=== PATIENT | male | born 1945 | race Caucasian/White ===

== ENCOUNTER 2023-09-14 10:30 | Emergency (ER) | payer MEDICARE, SELFPAY ==
--- NOTE | ~2023-09-14 | CT_ITS ---
EXAMINATION: CTA OF THE HEAD AND NECK CLINICAL INFORMATION: Right eye vision. COMPARISON: None available. TECHNIQUE: Test bolus sequences followed by intravenous administration 70 mL of Omnipaque 350. Helical imaging was performed in the axial plane from the mediastinum to the skull vertex. Delayed postcontrast imaging of the head was also performed. The data was processed at the radiologic technologist chief's workstation for generation of MIP sequences. Three-dimensional volume rendered reformatted images were also generated at an offline 3-D workstation. Stenoses are assessed in accordance with NASCET criteria unless otherwise indicated. This CT examination was performed using dose optimization techniques as appropriate, variously including the following: *Automated exposure control *Adjustment of mA and/or kV according to patient size (this includes techniques or standardized protocols for targeted exams where dose is matched to indication/reason for exam; i.e. extremities or head) *Use of iterative reconstruction technique DLP: 2169 mGy-cm. FINDINGS: CT head: There is no evidence of acute intracranial hemorrhage or territorial infarction. There is no loss of nelson to white matter differentiation. No abnormal mass effect or midline shift is seen. No extra-axial fluid collections are identified. There are small age-indeterminate, though suspected chronic infarcts in the caudate nuclei. Mild chronic white matter microangiopathic changes noted with atnm-eq-jdxlffcm generalized brain parenchymal volume loss and concordant ex vacuo prominence of the ventricles. There is no abnormal enhancement. The osseous structures and soft tissues are normal. The mastoid air cells and visualized portions of the paranasal sinuses are well aerated. There are significant degenerative changes in the left temporomandibular joint. CTA neck: The imaged aortic arch and origins of the great vessels are normal. The common carotid arteries are widely patent. Mild to moderate atheromatous disease noted at the carotid bifurcations and origins of the internal carotid arteries without significant stenosis. The vertebral arteries opacify normally and are of normal caliber. The soft tissues of the neck are unremarkable. Mild anterolisthesis noted at the C4-C5 level. Severe spondylitic changes noted at the C5-C6 level. There is a gqct-el-yucgimer rightward curvature of the cervical spine. Exuberant multilevel left-sided cervical facet arthrosis evident with foraminal encroachment. The imaged portions of the lungs are relatively clear with moderate to severe emphysematous changes. CTA head: The intradural vertebral arteries and basilar artery are normal. The posterior cerebral arteries are widely patent. The internal carotid arteries are of normal caliber. The ELIAZAR and MCA vascular complexes bilaterally are normal. The venous sinuses opacify normally. 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 Mild chronic white matter microangiopathy and zgau-ra-yskuefka generalized brain parenchymal volume loss. No hemodynamically significant stenosis or occlusion in the cervical or intracranial vasculature. Multilevel cervical spondylosis and spinal curvature with exuberant left-sided facet arthropathy. Moderate to severe emphysematous changes in the lungs. Severe degenerative changes in the left temporomandibular joint. Imaging findings reported to PAMELA Rich at 5:04 PM on 09/14/2023.
[2023-09-14 10:33] VITALS: BP 136/73; PULSE 69; RESP 17; TEMP 37.3; O2SAT 94; BMI 28.9
--- NOTE | 2023-09-14 11:50 | PC.NURSE ---
pharmacy called for missing med, not available, provider notified that only 15ML bottles available, pharmacy will bring med to floor
--- NOTE | 2023-09-14 12:19 | PC.NURSE ---
med to be administered by provider
--- NOTE | 2023-09-14 13:04 | ED_ITS ---
HPI - Eye Problem General Chief complaint: Eye Problems Stated complaint: vission lost in r eye no inj Time Seen by Provider: 09/14/23 11:19 Source: patient, family and RN notes reviewed Mode of arrival: ambulatory Limitations: language barrier ([place] speaking, daughter used to interpret) History of Present Illness HPI Narrative: This is a 78-year-old [place]-speaking male, with a history of hypertension, presenting to the emergency department with complaints of changes in vision since . Patient states that on his right eye was only seeing white. He then went to his graphic arts technician where he was told that there were no findings, and that he may need a ultrasound. He states that he was then discharged from his eye doctors with lubricating eyedrops. He states that the next day he had blurred vision however thought his symptoms were improving. He states that he now has had black floaters in eye, feeling as though he has a piece of hair in his right eye. Denies any eye pain. Denies any fevers, chills, headaches, left eye vision blurriness, eye pain, eye discharge, eye trauma, chest pain, shortness breast, abdominal pain, nausea, vomiting or diarrhea. MD chief complaint: vision change and foreign body Onset (ago): day(s) Onset description: sudden Duration: constant and intermittent Location: right eye Eye Symptoms: blurry vision Place: home Mechanism: none Associated symptoms: none Treatments Prior to Arrival: other (Lubricating eyedrops) Related Data Allergies Allergy/AdvReac Type Severity Reaction Status Date / Time aloe Allergy Rash Verified 09/14/23 10:46 magnesium Allergy Rash Verified 09/14/23 10:46 Penicillins Allergy Rash Verified 09/14/23 10:46 procaine [From Novocain] Allergy Unconscious Verified 09/14/23 10:46 Review of Systems 2 Review of Systems: Yes all other systems are reviewed and are negative Constitutional: Constitutional: Reports as per [facility] Social History Social History Advance Directives: No Advance Directives Information Provided: No Physical Exam 2 Vital Signs: Vital Signs: Last Vital Signs Temp 99.2 F 09/14/23 10:33 Pulse 69 09/14/23 10:33 Resp 17 09/14/23 10:33 BP 136/73 09/14/23 10:33 Pulse Ox 94 09/14/23 10:33 O2 Del Method Room Air 09/14/23 10:33 BMI result Body Mass Index 28.9 Const: General: cooperative, comfortable and no acute distress O rientation/consciousness: patient oriented x3 Limitations: no limitations HEENT: Head: Yes normal to inspection, Yes normocephalic and Yes atraumatic Ears: hearing grossly normal bilaterally General nose exam: Normal external nose present Face and sinus: Yes normal facial exam Mouth: Normal oral and palatal mucosa present, oropharynx normal and moist mucous membranes Throat: Yes posterior oropharynx normal Eyes: Other: Right eye no conjunctiva injected. No fluorescein uptake, extraocular movements intact. Visual luna intact. Extraocular pressure 11 in right, 14 and left General: appearance normal, both eyes and all related structures E yelids: Yes eyelids normal Conjunctivae: conjunctivae normal Sclerae: s clerae normal Pupils: Equal, round and reactive pupils present EOM: EOMs intact bilaterally Neck: Neck: Yes normal visual inspection, Yes full ROM and Yes no lymphadenopathy Lymphatic: no lymphadenopathy noted Chest: Chest palpation & inspection: normal inspection of the chest Resp: Effort & Inspection: normal respiratory effort and able to speak in complete sentences Auscultation: clear to auscultation bilaterally, no crackles, no rales, no rhonchi and no wheezes Cardio: Rate: regular rate Rhythm: regular rhythm Heart sounds: S1 normal heart sound present and S2 normal heart sound present GI: Inspection: Yes normal to inspection Skin: General skin exam: no rashes or lesions noted Trauma: no lacerations or abrasions Wounds: no wounds Neuro: General: patient oriented x3 and moves all extremities Cranial nerves: Yes Equal, round and reactive pupils present Extrem: General: Yes normal to inspection Right upper extremity: normal to inspection Left upper extremity: normal to inspection Right lower extremity: normal to inspection Left lower extremity: normal to inspection Course Reevaluation(s) Reevaluation #1: Orbital ultrasound was performed, no floaters or abnormality seen on orbital ultrasound performed by Dr. Mckay. Given symptoms, will obtain CT a of the head and neck. Patient remained stable, Reevaluation #2: Received phone call from [facility] revealing no high-grade stenosis. 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 I discussed findings with my attending physician Dr. Mckay. All these findings are chronic, and need follow-up with I physician as well as primary care, no acute interventions warranted at this time. I discussed these findings with daughter and patient. Given return precautions. He understands and agrees with plan. Patient stable for discharge. Time: 17:05 Medications Administered Discontinued Medications Generic Name Dose Route Start Last Admin Trade Name Frejesus alberto PRN Reason Stop Dose Admin Fluorescein Sodium 1 strip 09/14/23 11:32 09/14/23 12:19 Fluorescein Sodium Strip EYE-RIGHT 09/14/23 11:33 1 strip ONCE ONE Administration Iohexol 100 ml 09/14/23 16:27 09/14/23 16:27 Iohexol 350 Mg/Ml 100 Ml Infus..Btl IV 09/14/23 16:28 70 ml ONCE ONE Administration Tetracaine HCl 1 drop 09/14/23 11:32 09/14/23 11:50 Tetracaine Hcl/Pf 0.5% Oph Leslie 4 Ml Drops EYE-RIGHT 09/14/23 11:33 Not Given ONCE ONE Tetracaine HCl 3 drop 09/14/23 11:51 09/14/23 12:19 Tetracaine Hcl/Pf 0.5% Oph Leslie 4 Ml Drops EYE-RIGHT 09/14/23 11:52 3 drop ONCE ONE Administration Medical Decision Making Medical Decision Making MDM Narrative: This is a 78-year-old male, with a history of hypertension, presenting to the emergency department with complaints of vision changes in his right eye since . On arrival, patient alert, in no acute distress, vital signs within normal limits. He is neurologically intact. He has no headaches. Since of last week he developed visual changes reporting only seeing white and his right eye. He was seen by his graphic arts technician where he had an eye examination and was given lubricating eyedrops and reported no findings on his examination. He has had intermittent blurred vision and since today has had ?black hair? in his eye which is moving throughout eyeball with some blurriness. Denies any eye pain. No fevers, chills. Fluorescein stain performed, no fluorescein uptake throughout, no foreign body, extraocular pressures are intact. Visual acuity within normal limits. Discussed this case with my attending physician, Dr. Mckay, we will do a bedside orbital ultrasound. Differential Diagnosis Differential Diagnoses: The differential diagnosis associated with the presentation includes Retinal detachment, conjunctivitis, foreign body, corneal laceration, iritis, orbital cellulitis Admission/Observation Consideration of admission/observation: Escalation of care including admission/observation considered Lab Data MDM Lab Attestation statement: I reviewed the patient's lab results. No leukocytosis, stable H&H, chemistry within normal limits/ 09/14/23 14:42 09/14/23 14:42 Labs: Lab Results 09/14/23 Range/Units 14:42 WBC 8.0 (4.8-10.8) X10*3/uL RBC 4.95 (4.60-5.80) X10*6/uL Hgb 15.9 (14.0-18.0) g/dl Hct 46.1 (42.0-52.0) % MCV 93.1 (80.0-98.0) fL MCH 32.1 (27.0-33.0) pg MCHC 34.5 (31.0-36.0) g/dl RDW 11.9 (11.0-16.0) % Plt Count 195 (160-400) X10*3/uL MPV 9.3 L (9.4-12.4) fL Immature Gran % (Auto) 0.2 (0.0-0.4) % Neut % (Auto) 72.8 (45-73) % Lymph % (Auto) 18.0 L (20-40) % Shelby % (Auto) 7.6 (2-11) % Eos % (Auto) 1.0 (0-4) % Baso % (Auto) 0.4 (0-2) % Lymph # (Auto) 1.5 (1.2-4.9) X10*3/uL Shelby # (Auto) 0.6 (0.1-1.2) X10*3/uL Eos # (Auto) 0.1 (0.0-0.4) X10*3/uL Baso # (Auto) 0.0 (0.0-0.2) X10*3/uL Abs Immat Gran (auto) 0.02 (0.00-0.03) X10*3/uL Absolute Neuts (auto) 5.9 (2.0-8.3) x10*3/uL Absolute Nucleated RBC 0.000 (0.0-0.012) X10*3/uL Nucleated RBC % (auto) 0.0 (0.0-0.2) /100WBC ESR 5 (0-15) MM/HR PT 10.7 L (11.1-13.3) SEC INR 0.9 (0.9-1.1) APTT 25.8 L (26.0-36.4) SEC Sodium 142 (135-145) mmol/L Potassium 4.2 (3.3-5.1) mmol/L Chloride 107 (96-108) mmol/L Carbon Dioxide 27 (22-29) mmol/L Anion Gap 12 (12-20) BUN 24 H (9-16) mg/dL Creatinine 0.99 (0.5-1.4) mg/dL Estim Creat Clear Calc 60.5 Estimated GFR > 60 Random Glucose 95 (60-115) mg/dL Calcium 9.4 (8.4-10.2) mg/dL Total Bilirubin 0.9 (0.0-1.0) mg/dL Direct Bilirubin 0.3 (0.0-0.5) mg/dL AST 16 (5-37) U/L ALT 14 (0-40) U/L Alkaline Phosphatase 74 (39-117) U/L C-Reactive Protein 0.22 (< or = 0.50) mg/dL Total Protein 7.3 (6.5-8.0) g/dL Albumin 4.4 (3.5-5.0) g/dL Radiology Impression Discussion of test interpretation with radiology: I have reviewed the radiologist's reading. Radiologist Impression: EXAMINATION: CTA OF THE HEAD AND NECK CLINICAL INFORMATION: Right eye vision. COMPARISON: None available. TECHNIQUE: Test bolus sequences followed by intravenous administration 70 mL of Omnipaque 350. Helical imaging was performed in the axial plane from the mediastinum to the skull vertex. Delayed postcontrast imaging of the head was also performed. The data was processed at the fibre technologist's workstation for generation of MIP sequences. Three-dimensional volume rendered reformatted images were also generated at an offline 3-D workstation. Stenoses are assessed in accordance with NASCET criteria unless otherwise indicated. This CT examination was performed using dose optimization techniques as appropriate, variously including the following: *Automated exposure control *Adjustment of mA and/or kV according to patient size (this includes techniques or standardized protocols for targeted exams where dose is matched to indication/reason for exam; i.e. extremities or head) *Use of iterative reconstruction technique DLP: 2169 mGy-cm. FINDINGS: CT head: There is no evidence of acute intracranial hemorrhage or territorial infarction. There is no loss of nelson to white matter differentiation. No abnormal mass effect or midline shift is seen. No extra-axial fluid collections are identified. There are small age-indeterminate, though suspected chronic infarcts in the caudate nuclei. Mild chronic white matter microangiopathic changes noted with xxjv-iw-lsluqzit generalized brain parenchymal volume loss and concordant ex vacuo prominence of the ventricles. There is no abnormal enhancement. The osseous structures and soft tissues are normal. The mastoid air cells and visualized portions of the paranasal sinuses are well aerated. There are significant degenerative changes in the left temporomandibular joint. CTA neck: The imaged aortic arch and origins of the great vessels are normal. The common carotid arteries are widely patent. Mild to moderate atheromatous disease noted at the carotid bifurcations and origins of the internal carotid arteries without significant stenosis. The vertebral arteries opacify normally and are of normal caliber. The soft tissues of the neck are unremarkable. Mild anterolisthesis noted at the C4-C5 level. Severe spondylitic changes noted at the C5-C6 level. There is a ktmz-aw-[id number] rightward curvature of the cervical spine. Exuberant multilevel left-sided cervical facet arthrosis evident with foraminal encroachment. The imaged portions of the lungs are relatively clear with moderate to severe emphysematous changes. CTA head: The intradural vertebral arteries and basilar artery are normal. The posterior cerebral arteries are widely patent. The internal carotid arteries are of normal caliber. The ELIAZAR and MCA vascular complexes bilaterally are normal. The venous sinuses opacify normally. 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 Mild chronic white matter microangiopathy and srll-su-[id number] generalized brain parenchymal volume loss. No hemodynamically significant stenosis or occlusion in the cervical or intracranial vasculature. Multilevel cervical spondylosis and spinal curvature with exuberant left-sided facet arthropathy. Moderate to severe emphysematous changes in the lungs. Severe degenerative changes in the left temporomandibular joint. Imaging findings reported to PAMELA Rich at 5:04 PM on 09/14/2023. Dictated By: SEN GUTIÉRREZ MD Discharge Plan Discharge Clinical Impression: Visual changes Patient Disposition: Home, Self-Care Instructions: Blurred Vision (ED) Additional Instructions: You were seen in the emergency department due to vision changes in your right eye. We performed a ultrasound, which did not show any acute abnormalities. We also performed a CT angiogram of your head and neck. There no acute or new findings. Please follow-up with your eye physician as well as your primary care physician regarding her symptoms as it is unclear what is causing you to have these episodes of blurred vision. If any new or worsening symptoms occur including but not limited to eye pain, complete loss of vision, headaches, dizziness, chest pain or shortness a breath, please return for re-evaluation.
[2023-09-14 14:47] LABS: MANUAL DIFF FLAG NO
[2023-09-14 14:53] LABS: Basophils Percent Auto 0.4 % (0-2); Eosinophils Absolute Auto 0.1 X10*3/uL (0.0-0.4); Hematocrit 46.1 % (42.0-52.0); Hemoglobin 15.9 g/dl (14.0-18.0); Imm Gran Abs Auto 0.02 X10*3/uL (0.00-0.03); Imm Gran Pct Auto 0.2 % (0.0-0.4); Lymphocytes Absolute Auto 1.5 X10*3/uL (1.2-4.9); Mean Corpuscular HGB Conc 34.5 g/dl (31.0-36.0); Mean Corpuscular Hemoglobin 32.1 pg (27.0-33.0); Mean Corpuscular Volume 93.1 fL (80.0-98.0); Mean Platelet Volume 9.3 fL (9.4-12.4); Monocytes Absolute Auto 0.6 X10*3/uL (0.1-1.2); Monocytes Percent Auto 7.6 % (2-11); Neutrophils Absolute Auto 5.9 x10*3/uL (2.0-8.3); Neutrophils Percent Auto 72.8 % (45-73); Platelet Count 195 X10*3/uL (160-400); Red Blood Count 4.95 X10*6/uL (4.60-5.80); Red Cell Distribution Width 11.9 % (11.0-16.0)
[2023-09-14 15:05] LABS: INTERNATIONAL NORM RATIO 0.9 (0.9-1.1); Prothrombin Time 10.7 SEC (11.1-13.3)
[2023-09-14 15:06] LABS: Alanine Aminotransferase 14 U/L (0-40); Albumin Level 4.4 g/dL (3.5-5.0); Alkaline Phosphatase 74 U/L (39-117); Anion Gap 12 (12-20); Aspartate Amino Transferase 16 U/L (5-37); Bilirubin Direct 0.3 mg/dL (0.0-0.5); Bilirubin Total 0.9 mg/dL (0.0-1.0); Blood Urea Nitrogen 24 mg/dL (9-16); C Reactive Protein 0.22 mg/dL (< or = 0.50); Calcium 9.4 mg/dL (8.4-10.2); Carbon Dioxide 27 mmol/L (22-29); Chloride 107 mmol/L (96-108); Creatinine Clr Calc Pharmacy 60.5; Estimated Glomerular Filt Rate > 60; Glucose Random 95 mg/dL (60-115); Potassium 4.2 mmol/L (3.3-5.1); Sodium 142 mmol/L (135-145); Total Protein 7.3 g/dL (6.5-8.0)
[2023-09-14 15:08] LABS: Partial Thromboplastin Time 25.8 SEC (26.0-36.4)
[2023-09-14 15:41] LABS: Erythrocyte Sedimentation Rate 5 MM/HR (0-15)
[2023-09-14] MEDS: iohexoL 350 MG/ML 100 ML INFUS..BTL IV (16:27)
--- NOTE | 2023-09-14 17:32 | PC.NURSE ---
meds not administered to patient due to allergy
[2023-09-14 17:37] VITALS: BP 182/77; PULSE 67; RESP 16; TEMP 36.3; O2SAT 97
== END 2023-09-14 18:00 | disposition home or self-care (01) ==
PROVIDERS: Physician Assistant Medical; Emergency Provider Emergency Medicine
DX: H53.9 Unspecified visual disturbance (principal); I10 Essential (primary) hypertension; H53.8 Other visual disturbances
CPT/HCPCS: 36415; 70496; 70498; 80048; 80076; 85025; 85610; 85652; 85730; 86140; 99284; Q9967